=== PATIENT | male | born 1980 ===

== ENCOUNTER 2018-09-08 19:44 | Emergency (ER) | payer OTHER ==
[2018-09-08 20:23] VITALS: BP 147/92; PULSE 80; RESP 18; TEMP 98.6; O2SAT 98
[2018-09-08] MEDS ORDERED: Tdap Vaccine 0.5 ml Vial (10-64 yrs) IM ONE ×2 (21:24→21:55)
--- NOTE | 2018-09-08 21:41 | ED PDOC ---
HPI: Trauma/Fall - HPI Time Seen by Provider: 09/08/18 21:22 Chief Complaint (Nursing): Trauma Chief Complaint (Provider): Trauma History Per: Patient History/Exam Limitations: no limitations Onset/Duration Of Symptoms: Hrs (x2) Location Of Injury: Left: Head Associated Symptoms: Dizziness Additional Complaint(s): 38 years old male with no significant PMHx presents to ED for evaluation of headache and nasal injury status post a fall onset 2 hours ago. Patient reports around 7 pm tonight he was walking his dog when he tripped over the leash and fell forward into the concrete. Ambulance was called to the scene but patient refused to be evaluated at that time. He reports headache worsened and his nose laceration would not stop bleeding, prompting evaluation. Patient reports global headache, nasal pain and mild dizziness. He denies fever, visual changes, vomiting, extremity pain, abdominal pain, chest pain, shortness of breath or taking any medications prior to arrival. Tetanus shot is not up to date. PMD: None provided Past Medical History Reviewed: Historical Data, Nursing Documentation, Vital Signs Vital Signs: Last Vital Signs Temp 98.6 F 09/08/18 20:20 Pulse 80 09/08/18 20:20 Resp 18 09/08/18 20:20 BP 147/92 H 09/08/18 20:20 Pulse Ox 98 09/08/18 20:20 - Medical History PMH: No Chronic Diseases - Surgical History Surgical History: No Surg Hx - Family History Family History: States: Unknown Family Hx - Home Medications Home Medications: Ambulatory Orders Medication Instructions Recorded Bacitracin Ointment [Bacitracin] 1 applic TOP BID #1 tube 09/08/18 Cephalexin [Keflex] 500 mg PO TID #21 capsule 09/08/18 Naproxen 500 mg PO BID PRN #20 tab 09/08/18 - Allergies Allergies/Adverse Reactions: Allergies Allergy/AdvReac Type Severity Reaction Status Date / Time No Known Allergies Allergy Verified 09/08/18 20:23 Review of Systems ROS Statement: Except As Marked, All Systems Reviewed And Found Negative Constitutional: Negative for: Fever Eyes: Negative for: Vision Change ENT: Positive for: Nose Pain Cardiovascular: Negative for: Chest Pain Gastrointestinal: Negative for: Vomiting, Abdominal Pain Neurological: Positive for: Headache, Dizziness (mild) Physical Exam - Reviewed Nursing Documentation Reviewed: Yes Vital Signs Reviewed: Yes - Physical Exam Comments: GENERAL APPEARANCE: Patient is awake, alert, oriented x 3, in no acute distress. Uncomfortable appearing. SKIN: Warm, dry; (-) cyanosis; (-) rash. HEAD: (+) palpable right parietal scalp hematoma, (+)2cm x 2cm left forehead hematoma with superficial abrasion (-)palpable bony deformity EYES: (-) conjunctival injection (-) hyphema ENMT: Airway patent, (-) stridor. Mucus membranes are moist. (+) 1.5 cm horizontal laceration to nasal bridge (+) active bleeding, (+) tenderness and edema to nasal bridge, (+) dry blood in nares bilaterally. (+) mild tenderness to bilateral medial eye orbits. NECK: Supple, FROM (-) tenderness, (-) stiffness, (-) meningismus, (-) lymphadenopathy. CHEST AND RESPIRATORY: (-) rales, (-) rhonchi, (-) wheezes; breath sounds equal bilaterally. Respirations even and nonlabored. HEART AND CARDIOVASCULAR: (-) irregularity ABDOMEN AND GI: Soft; (-) tenderness. EXTREMITIES: (-) deformity. NEURO AND PSYCH: Mental status as above. casing operator: Pupils equal and reactive; EOMI and painless; (-) facial asymmetry; tongue and uvula midline. Strength symmetric. Gait: steady. Speech: clear. Cerebellar tests intact. - ECG O2 Sat by Pulse Oximetry: 98 (RA) Pulse Ox Interpretation: Normal Medical Decision Making Medical Decision Making: Time: 2124 Initial impression: head injury, probable nasal fracture, nasal laceration status post fall Initial plan: --Maxillofacial CT --Head CT --Tetanus IM --Tylenol 650 mg PO --Keflex 500mg PO (prophylaxis) --Laceration Repair --Lidocaine 1% INJ for laceration repair 2219 Laceration repair performed by Taylor CASTRO. See procedure note. Patient tolerated procedure well. Bacitracin and bandaid applied. Suture removal advised in 5-7 days. Educated on wound care. EXAM: CT Head without Intravenous Contrast. CLINICAL HISTORY: S/p Fall (+)LOC TECHNIQUE: Axial computed tomography images of the head/brain without intravenous contrast. 744.37 mGy-cm COMPARISON: None provided. FINDINGS: BRAIN No acute intraparenchymal hemorrhage. No mass lesion. No CT evidence for acute territorial infarct. No midline shift or extra-axial collections. VENTRICLES: No hydrocephalus. ORBITS: The orbits are unremarkable. SINUSES AND MASTOIDS: The paranasal sinuses and mastoid air cells are clear. BONES: No fracture. SOFT TISSUES: Unremarkable. IMPRESSION: No acute intracranial abnormality. Electronically signed on Sep 08, 2018 10:10:59 PM EDT by: Kwaku Garcia M.D., MBA Certified By [facility] & [facility] Trained MRI and CT Specialist EXAM: CT Maxillofacial without Intravenous Contrast. CLINICAL HISTORY: S/p Fall (+) LOC TECHNIQUE: Axial computed tomography images of the face without intravenous contrast. Sagittal and coronal reformatted images were generated. 513.06 mGy-cm CONTRAST: Without COMPARISON: None provided. FINDINGS: BONES: No acute fracture or aggressive appearing osseous lesion. The mandible is intact. SOFT TISSUES: The soft tissues are unremarkable. SINUSES: Minimal mucoperiosteal thickening noted in the inferior left maxillary sinus palpable with minimal sinusitis. The remaining sinuses are clear. ORBITS: The orbits are normal. No retrobulbar hematoma or mass. IMPRESSION: 1. Minimal inferior left maxillary sinusitis. 2. Otherwise, unremarkable maxillofacial CT. Electronically signed on Sep 08, 2018 10:25:59 PM EDT by: Kwaku Garcia M.D., KAL Certified By [facility]BR & [facility] Fellowship Trained MRI and CT Specialist On re-evaluation, patient reports improvement of symptoms. On exam, patient remains AAOx3, in no acute distress. Neuro exam shows no focal findings. Vitals stable. Lab/Diagnostic results d/w the patient in great detail. Diagnosis of facial contusion, nasal laceration, head injury s/p fall d/w the patient. Based on history, exam and diagnostic results, plan will be for outpatient follow up with PMD/clinic. Patient instructed to follow-up with pmd / referral provided / the clinic in 1- 2 days without fail. Advised to take medication as prescribed. Return to the emergency room at any time for any new or worsening symptoms. Patient states he fully agrees with and understands discharge instructions. States that he agrees with the plan and disposition. Verbalized and repeated discharge instructions and plan. I have given the patient opportunity to ask any additional questions. Scribe Attestation: Documented by Noa Roberts acting as a scribe for Jill Vazquez PA-C. Provider Scribe Attestation: All medical record entries made by the Scribe were at my direction and personally dictated by me. I have reviewed the chart and agree that the record accurately reflects my personal performance of the history, physical exam, medical decision making, and the department course for this patient. I have also personally directed, reviewed, and agree with the discharge instructions and disposition. Procedures - Laceration/Wound Repair Nasal Laceration Wound Length (cm): 1.5 Wound's Depth, Shape: linear (down to nasal bone) Wound Explored: clean Irrigated w/ Saline (ccs): 100 Anesthesia: 1% Lidocaine Volume Anesthetic (ccs): 2 Wound Debrided: minimal Wound Repaired With: Sutures Suture Size/Type: 5:0, proline Number of Sutures: 5 Layer Closure?: No Wound Complexity: Simple Progress: Patient tolerated procedure well. Disposition - Clinical Impression Clinical Impression: Nasal laceration, Facial contusion, Scalp hematoma, Head injury, Fall - Patient ED Disposition Is Patient to be Admitted: No Counseled Patient/Family Regarding: Studies Performed, Diagnosis, Need For Followup, Rx Given - Disposition Referrals: Zaki Lakhani MD [Staff Provider] - [facility] [Outside] Disposition: Routine/Home Disposition Time: 23:00 Condition: STABLE Additional Instructions: SUTURE REMOVAL IN 5-7 DAYS. The emergency medical care you received today was directed at your acute symptoms. If you were prescribed any medication, please fill it and take as directed. It may take several days for your symptoms to resolve. Return to the Emergency Department if your symptoms worsen, do not improve, or if you have any other problems. Please contact your doctor in 2 days for re-evaluation and follow up / or call one of the physicians/clinics you have been referred to that are listed on the Patient Visit Information form that is included in your discharge packet. Bring any paperwork you were given at discharge with you along with any medications you are taking to your follow up visit. Our treatment cannot replace ongoing medical care by a primary care provider (PCP) outside of the emergency department. Prescriptions: Bacitracin Ointment [Bacitracin] 1 applic TOP BID #1 tube Cephalexin [Keflex] 500 mg PO TID #21 capsule Naproxen 500 mg PO BID PRN #20 tab PRN Reason: Pain, Moderate (4-7) Instructions: Wound Care, Contusion (DC), Laceration Repair With Stitches (DC), Minor Head Injury (DC) Forms: [employer] (Bengali) Print Language: ICELANDIC - POA Present On Arrival: Falls Or Trauma
[2018-09-08] MEDS ORDERED: Hydrogen Peroxide 3% Soln (480ml) TP ONE (22:01)
--- NOTE | 2018-09-09 08:41 | CT ---
Date of service: 09/08/2018 PROCEDURE: CT HEAD WITHOUT CONTRAST. HISTORY: s/p fall, (+) LOC COMPARISON: None available. TECHNIQUE: Axial computed tomography images were obtained through the head/brain without intravenous contrast. Radiation dose: Total exam DLP = 1257.43 mGy-cm. This CT exam was performed using one or more of the following dose reduction techniques: Automated exposure control, adjustment of the mA and/or kV according to patient size, and/or use of iterative reconstruction technique. FINDINGS: HEMORRHAGE: No intracranial hemorrhage. BRAIN: No mass effect or edema. No atrophy or chronic microvascular ischemic changes. VENTRICLES: Unremarkable. No hydrocephalus. CALVARIUM: No fracture. Right frontal scalp hematoma. PARANASAL SINUSES: Unremarkable as visualized. No significant inflammatory changes. MASTOID AIR CELLS: Unremarkable as visualized. No inflammatory changes. OTHER FINDINGS: None. IMPRESSION: No intracranial hemorrhage. Right frontal scalp hematoma. Otherwise unremarkable examination. The preliminary findings for this examination were reported by [facility] at 10:10 p.m. on 09/08/2018. There is concurrence of this report with the preliminary findings.
--- NOTE | 2018-09-09 08:42 | CT ---
Date of service: 09/08/2018 PROCEDURE: CT MAXILLOFACIAL BONES WITHOUT CONTRAST HISTORY: s/p fall, (+) LOC COMPARISON: None available. TECHNIQUE: Contiguous axial CT images of the maxillofacial bones were obtained. Coronal and sagittal reformats were generated. Radiation dose: Total exam DLP = 0.0 mGy-cm. This CT exam was performed using one or more of the following dose reduction techniques: Automated exposure control, adjustment of the mA and/or kV according to patient size, and/or use of iterative reconstruction technique. FINDINGS: NASAL BONES: Unremarkable. ORBITS: Unremarkable. PARANASAL SINUSES/ MASTOIDS: Minimal chronic left maxillary sinusitis. MAXILLA: Unremarkable. MANDIBLE/ TEMPOROMANDIBULAR JOINTS: Unremarkable. SKULL BASE: Unremarkable. TEMPORAL BONES: Middle ears and mastoid grossly unremarkable. OTHER FINDINGS: None. IMPRESSION: No acute fracture. Minimal left chronic maxillary sinusitis. Otherwise unremarkable. The preliminary findings for this examination were reported by [facility] at 10:25 p.m. on 09/08/2018. There is concurrence of this report with the preliminary findings.
== END 2018-09-08 23:40 | disposition home or self-care (01) ==
LOC: H.ER 19:44
DX: S01.21XA Laceration without foreign body of nose, initial encounter (principal); S00.03XA Contusion of scalp, initial encounter; S09.90XA Unspecified injury of head, initial encounter; W01.0XXA Fall on same level from slipping, tripping and stumbling without subsequent striking against object, initial encounter; Z23 Encounter for immunization

== ENCOUNTER 2018-09-14 18:32 | Emergency (ER) | payer SELFPAY ==
[2018-09-14 18:44] VITALS: BP 153/100; PULSE 82; RESP 18; TEMP 98.8; O2SAT 99
--- NOTE | 2018-09-14 18:49 | ED PDOC ---
HPI: Wound Care - HPI Time Seen by Provider: 09/14/18 18:47 Chief Complaint (Nursing): Suture/Staple Removal Chief Complaint (Provider): Suture Removal History Per: Patient Exam Limitations: no limitations Onset/Duration Of Symptoms: Days (x6) Current Symptoms Are (Timing): Better Additional Complaint(s): 38 year old male presents to the ED for suture removal. Patient reports that on 09/08/18 he had five sutures placed to the bridge of his nose and denies any complications such as redness, swelling, or discharge. Additionally denies fever and chills. PMD: none provided Past Medical History Reviewed: Historical Data, Nursing Documentation, Vital Signs Vital Signs: Last Vital Signs Temp 98.8 F 09/14/18 18:41 Pulse 82 09/14/18 18:41 Resp 18 09/14/18 18:41 BP 153/100 H 09/14/18 18:41 Pulse Ox 99 09/14/18 18:41 - Medical History PMH: No Chronic Diseases - Surgical History Surgical History: No Surg Hx - Family History Family History: States: Unknown Family Hx - Social History Current smoker - smoking cessation education provided: No Alcohol: None Drugs: Denies - Home Medications Home Medications: Ambulatory Orders Medication Instructions Recorded Bacitracin Ointment [Bacitracin] 1 applic TOP BID #1 tube 09/08/18 Cephalexin [Keflex] 500 mg PO TID #21 capsule 09/08/18 Naproxen 500 mg PO BID PRN #20 tab 09/08/18 - Allergies Allergies/Adverse Reactions: Allergies Allergy/AdvReac Type Severity Reaction Status Date / Time No Known Allergies Allergy Verified 09/08/18 20:23 Review of Systems ROS Statement: Except As Marked, All Systems Reviewed And Found Negative Constitutional: Negative for: Fever, Chills Skin: Positive for: Other (sutures in placed to bridge of nose) Physical Exam - Reviewed Nursing Documentation Reviewed: Yes Vital Signs Reviewed: Yes - Physical Exam Appears: Positive for: No Acute Distress Head Exam: Positive for: ATRAUMATIC, NORMAL INSPECTION, NORMOCEPHALIC Skin: Positive for: Normal Color, Warm Eye Exam: Positive for: Normal appearance ENT: Positive for: Other (2cm horizontal laceration across bridge of nose with five sutures in place to the well healing wound, (-) erythema, (-) drainage, (-) bleeding, (-) discharge ) Neck: Positive for: Normal, Painless ROM, Supple Cardiovascular/Chest: Positive for: Regular Rate, Rhythm Respiratory: Positive for: Normal Breath Sounds. Negative for: Respiratory Distress Neurological/Psych: Positive for: Awake, Alert, Oriented (x3) - ECG O2 Sat by Pulse Oximetry: 99 (RA) Pulse Ox Interpretation: Normal Medical Decision Making Medical Decision Making: Time: 1849 Initial Impression: suture removal Initial Plan: --All five sutures removed without complication. Patient advised to continue taking the antibiotics provided from last visit and educated on return parameters. All questions answered and patient verbalized agreement with plan and discharge. Scribe Attestation: Documented by Flakita Yoon, acting as a scribe for Cooper Camacho PA-C. Provider Scribe Attestation: All medical record entries made by the Scribe were at my direction and personally dictated by me. I have reviewed the chart and agree that the record accurately reflects my personal performance of the history, physical exam, medical decision making, and the department course for this patient. I have also personally directed, reviewed, and agree with the discharge instructions and disposition. Disposition - Clinical Impression Clinical Impression: Removal of suture - Disposition Disposition: Routine/Home Disposition Time: 18:57 Condition: STABLE Instructions: Stitches Removal Forms: [employer] (Dutch)
== END 2018-09-14 20:00 | disposition home or self-care (01) ==
LOC: H.ER 18:32
DX: Z48.02 Encounter for removal of sutures (principal)